=== PATIENT | male | born 1995 | race Caucasian/White ===

== ENCOUNTER → 2022-09-17 15:21 | Outpatient (BNVA) | payer MEDICARE, MEDICAID, SELFPAY | PROVIDERS: PCP Internal Medicine; Referring Provider Internal Medicine; Visit Provider Surgery | DX: L98.8 Other specified disorders of the skin and subcutaneous tissue (principal) | CPT/HCPCS: 99202 ==

== ENCOUNTER → 2022-10-10 15:49 | Outpatient (BNVA) | payer MEDICARE, MEDICAID, SELFPAY | PROVIDERS: PCP Internal Medicine; Visit Provider Surgery | DX: D17.1 Benign lipomatous neoplasm of skin and subcutaneous tissue of trunk (principal) | CPT/HCPCS: 11403; 88304 ==

== ENCOUNTER 2022-10-10 18:11 | Outpatient (REF) | payer MEDICARE, MEDICAID, SELFPAY | END 2022-10-10 18:12 | disposition home or self-care (01) | LOC: HO.LNP 18:11 | PROVIDERS: Visit Provider Surgery | DX: L98.8 Other specified disorders of the skin and subcutaneous tissue (principal) | CPT/HCPCS: 11043; 11403 ==

== ENCOUNTER → 2022-10-31 15:18 | Outpatient (BNVA) | payer MEDICARE, MEDICAID, SELFPAY | PROVIDERS: PCP Internal Medicine; Visit Provider Surgery | DX: Z13.89 Encounter for screening for other disorder (principal) ==

== ENCOUNTER 2023-11-06 15:33 | Outpatient (AMB) | payer OTHER, SELFPAY ==
[2023-11-06 15:35] VITALS: BP 124/86; PULSE 81; O2SAT 97; BMI 53.4
--- NOTE | 2023-11-06 15:35 | A.OFFPC_ITS ---
Vital Signs 11/06/23 15:35 Height 6 ft Weight 394 lb 2 oz BMI 53.4 BP 124/86 Blood Pressure Location Rt brachial Position Sitting Pulse 81 Pulse Source Pulse Oximeter Pulse Oximetry (%) 97 Oxygen Delivery Method Room Air Intake Visit Reasons: 6 Month follow up Allergies No Known Allergies [No Known Allergies*] Allergy (Verified 11/06/23 15:36) Environmental Allergy (Unknown, Uncoded 02/08/23 14:54) Unknown Medication List - Last Reconciled 11/06/23 by Selene Thomas MD No Known Home Meds Tobacco use date assessed: 11/06/23 Dental Screening Dental Screen Date: 11/06/23 Did you have a dental visit in the last 12 months?: Yes Did you have a dental problem in the last 6 months where you did not have access to dental care?: No Was dental information given to patient?: Patient has dentist HPI 6 Month follow up HPI Details Patient is 27-year-old gentleman came in today for six-month follow-up Patient is complaining of feeling firm around his abdomen He says that it has not pain but on uncomfortable feeling He is tolerating food there is no nausea vomiting However have diarrhea for the past 1 week There is no fever no chills no cough no headache no dizziness I am ordering ultrasound of abdomen to further evaluate I have placed a new set of lab orders patient was encouraged to do it as soon as possible He does not like needles we tells me but he will try to get it Patient is morbidly obese but trying to lose weight. Seborrheic dermatitis is controlled with shampoo. [id number] head and shoulder He has GERD he is taking omeprazole as needed Patient have a sleep apnea and is using a CPAP machine. Whenever he can Due for physical exam after [facility] Medical History Skin lesion of breast Morbid obesity Seborrhea capitis Sleep apnea in adult Chronic GERD Surgical History H/O tooth extraction Family History Father Klinefelter syndrome Depression History of mental disorder Mother Anxiety History of mental disorder Maternal Grandmother Arthritis Liver problem Cancer Maternal Grandfather Alcohol abuse Paternal Grandmother No problems noted. Paternal Grandfather No problems noted. Brother No problems noted. Sister No problems noted. Social History Housing: House Patient Tobacco Use Status: Never used Tobacco e-Cigarette/Vaping Use: Never Used Current occupational status: unemployed Cognitive needs: No Hearing needs: No Vision needs: No Questionnaire Thrive Questionnaire Date Thrive assessed: 08/08/22 AUDIT C Alcohol Use Questionnaire (AUDIT-C) 1. How often do you have a drink containing alcohol?: Never 3. How often do you have six or more drinks on one occasion?: Never Total Score: 0 Score Reviewed/Action Taken: Yes SARAH BETH-7 AMB Questionnaire SARAH BETH-7 Date SARAH BETH - 7 assessed: 08/08/22 Source: Developed by Drs. Milan Soria, Christy Lynn, Lawrence Cadena and colleagues, with an educational sagrario from [employer]. Review of Systems Const Denies chills and Denies fever(s) ENT Denies epistaxis and Denies nasal discharge Card Denies chest pain Resp Denies chest congestion, Denies cough and Denies hemoptysis GI Denies nausea Skin/Breast Denies rash Neuro Reports no additional complaints Psych Reports no additional complaints Endo Reports no additional complaints Physical exam (Primary Care) Vital Signs: Last Vital Signs Pulse 81 11/06/23 15:35 BP 124/86 11/06/23 15:35 Pulse Ox 97 11/06/23 15:35 Oxygen Delivery Method Room Air 11/06/23 15:35 BMI result Body Mass Index 53.4 Tobacco/Smoking Status: Tobacco use Status Tobacco use date assessed 11/06/23 11/06/23 15:42 Patient Tobacco Use Status Never used Tobacco 11/06/23 15:42 e-Cigarette/Vaping Use Never Used 11/06/23 15:42 Thrive Assessment: Date of Thrive Assessment Date Thrive assessed 08/08/22 11/06/23 15:42 Const General: cooperative, comfortable and no acute distress Orientation/consciousness: patient oriented x3 HENMT Head: Yes normocephalic Eyes General: appearance normal, both eyes and all related structures Neck Neck: Yes supple Resp Effort & Inspection: normal respiratory effort, no cough and no stridor GI Other: Due to patient's weight, exam is difficult but it seems as if he has developed ventral hernia Skin General skin exam: turgor normal Neuro General: patient oriented x3, tone normal and moves all extremities Assessment and Plan Assessment & Plan (1) Abdominal pain: Code(s): R10.9 - Unspecified abdominal pain Qualifiers: Abdominal location: periumbilical Qualified Code(s): R10.33 - Periumbilical pain (2) Morbid obesity: Code(s): E66.01 - Morbid (severe) obesity due to excess calories (3) Seborrhea capitis: Code(s): L21.0 - Seborrhea capitis (4) Chronic GERD: Code(s): K21.9 - Gastro-esophageal reflux disease without esophagitis (5) Sleep apnea in adult: Code(s): G47.30 - Sleep apnea, unspecified Plan Patient is 27-year-old gentleman came in today for six-month follow-up Patient is complaining of feeling firm around his abdomen He says that it has not pain but on uncomfortable feeling He is tolerating food there is no nausea vomiting However have diarrhea for the past 1 week There is no fever no chills no cough no headache no dizziness I am ordering ultrasound of abdomen to further evaluate I have placed a new set of lab orders patient was encouraged to do it as soon as possible He does not like needles we tells me but he will try to get it Patient is morbidly obese but trying to lose weight. Seborrheic dermatitis is controlled with shampoo. [id number] head and shoulder He has GERD he is taking omeprazole as needed Patient have a sleep apnea and is using a CPAP machine. Whenever he can Due for physical exam after me Orders: Orders US abdomen complete Today R10.9 - Unspecified abdominal pain Comprehensive Met. Panel Today E66.01 - Morbid (severe) obesity due to excess calories, G47.30 - Sleep apnea, unspecified, K21.9 - Gastro-esophageal reflux disease without esophagitis, L21.0 - Seborrhea capitis, R10.9 - Unspecified abdominal pain TSH reflex Free T4 Today E66.01 - Morbid (severe) obesity due to excess calories, G47.30 - Sleep apnea, unspecified, K21.9 - Gastro-esophageal reflux disease without esophagitis, L21.0 - Seborrhea capitis, R10.9 - Unspecified abdominal pain Complete Blood Count Auto Diff Today E66.01 - Morbid (severe) obesity due to excess calories, G47.30 - Sleep apnea, unspecified, K21.9 - Gastro-esophageal reflux disease without esophagitis, L21.0 - Seborrhea capitis, R10.9 - Unspecified abdominal pain Coding Level of Care Code Est Pt Level 4 (89380) Diagnoses Periumbilical abdominal pain R10.33 Abdominal location: periumbilical Morbid obesity E66.01 Seborrhea capitis L21.0 Chronic GERD K21.9 Sleep apnea in adult G47.30
== END 2023-11-06 16:18 | disposition home or self-care (01) ==
PROVIDERS: PCP Internal Medicine; Visit Provider Internal Medicine
DX: R10.33 Periumbilical pain (principal); E66.01 Morbid (severe) obesity due to excess calories; Z68.43 Body mass index [BMI] 50.0-59.9, adult; L21.0 Seborrhea capitis; K21.9 Gastro-esophageal reflux disease without esophagitis; G47.30 Sleep apnea, unspecified
CPT/HCPCS: 99214

== ENCOUNTER 2023-11-15 09:53 | Outpatient (REF) | payer OTHER, SELFPAY ==
--- NOTE | ~2023-11-15 | US_ITS ---
EXAMINATION: US ABDOMEN COMPLETE CLINICAL INFORMATION: Unspecified abdominal pain. COMPARISON: None available. TECHNIQUE: Real-time imaging of the abdominal viscera. Technically limited study secondary to body habitus. FINDINGS: PANCREAS: Not well seen due to shadowing from overlying bowel gas and patient body habitus. ABDOMINAL AORTA: Not well seen due to shadowing from overlying bowel gas and patient body habitus. INFERIOR VENA CAVA: Visualized portions are normal. LIVER: The liver is normal in size. The liver contour is normal. Increased echogenicity. No focal hepatic lesion. There is no intrahepatic biliary duct dilatation seen. GALLBLADDER: Normal. The gallbladder is physiologically distended without evidence of stones, sludge, polyps, wall thickening or pericholecystic fluid. COMMON BILE DUCT: Normal in caliber measuring 0.4 cm in diameter. RIGHT KIDNEY: Normal. No hydronephrosis. No renal calculi or focal parenchymal lesions. The kidney measures 10.5 cm in maximum dimension. LEFT KIDNEY: Normal. No hydronephrosis. No renal calculi or focal parenchymal lesions. The kidney measures 11.0 cm in maximum dimension. SPLEEN: Normal. The spleen measures 11.7 cm in maximum dimension. FREE FLUID: None. ADDITIONAL FINDINGS: Additional images of the right mid abdominal wall in the area of a lump/bulge demonstrating a hernia, incompletely characterized in this examination due to limitations secondary to patient body habitus. US/US abdomen complete IMPRESSION: 1. Limited examination due to patient body habitus and shadowing from overlying bowel gas. 2. Increased echogenicity of the liver is a nonspecific finding but most commonly on the basis of diffuse hepatocellular disease such as hepatic steatosis. 3. Incompletely characterized hernia in the right abdominal wall, recommend further evaluation with CT abdomen/pelvis.
[2023-11-15 13:22] LABS: MANUAL DIFF FLAG NO
[2023-11-15 13:30] LABS: Basophils Percent Auto 0.3 % (0-2); Eosinophils Absolute Auto 0.2 X10*3/uL (0.0-0.4); Eosinophils Percent Auto 2.3 % (0-4); Hemoglobin 14.8 g/dl (14.0-18.0); Imm Gran Abs Auto 0.01 X10*3/uL (0.00-0.03); Imm Gran Pct Auto 0.1 % (0.0-0.4); Lymphocytes Absolute Auto 2.4 X10*3/uL (1.2-4.9); Lymphocytes Percent Auto 35.4 % (20-40); Mean Corpuscular HGB Conc 32.2 g/dl (31.0-36.0); Mean Platelet Volume 10.4 fL (9.4-12.4); Monocytes Absolute Auto 0.4 X10*3/uL (0.1-1.2); Monocytes Percent Auto 6.1 % (2-11); Neutrophils Absolute Auto 3.8 x10*3/uL (2.0-8.3); Neutrophils Percent Auto 55.8 % (45-73); Platelet Count 223 X10*3/uL (160-400); Red Blood Count 5.29 X10*6/uL (4.60-5.80); Red Cell Distribution Width 13.4 % (11.0-16.0); White Blood Count 6.9 X10*3/uL (4.8-10.8)
[2023-11-15 14:19] LABS: Alanine Aminotransferase 21 U/L (0-40); Albumin Level 3.9 g/dL (3.5-5.0); Alkaline Phosphatase 93 U/L (39-117); Anion Gap 13 (12-20); Aspartate Amino Transferase 17 U/L (5-37); Bilirubin Total 0.4 mg/dL (0.0-1.0); Blood Urea Nitrogen 14 mg/dL (9-16); Calcium 9.6 mg/dL (8.4-10.2); Carbon Dioxide 25 mmol/L (22-29); Chloride 106 mmol/L (96-108); Estimated Glomerular Filt Rate > 60; Glucose Random 94 mg/dL (60-115); Potassium 4.2 mmol/L (3.3-5.1); Sodium 140 mmol/L (135-145); Total Protein 7.6 g/dL (6.5-8.0)
== END 2023-11-15 09:54 | disposition home or self-care (01) ==
LOC: HO.HMGCX 09:53
PROVIDERS: PCP Internal Medicine; Visit Provider Internal Medicine
DX: E66.01 Morbid (severe) obesity due to excess calories (principal); R10.9 Unspecified abdominal pain; L21.0 Seborrhea capitis; G47.30 Sleep apnea, unspecified; K21.9 Gastro-esophageal reflux disease without esophagitis
CPT/HCPCS: 36415; 76700; 80053; 84443; 85025

== ENCOUNTER 2023-11-21 08:50 | Outpatient (AMB) | payer OTHER, SELFPAY ==
--- NOTE | 2023-11-21 09:24 | A.OFFPC_ITS ---
Intake Visit Reasons: Discuss Ultrasound Report~ Allergies No Known Allergies [No Known Allergies*] Allergy (Verified 11/21/23 09:25) Environmental Allergy (Unknown, Uncoded 02/08/23 14:54) Unknown Medication List - Last Reconciled 11/21/23 by Selene Thomas MD No Known Home Meds Tobacco use date assessed: 11/21/23 Dental Screening Dental Screen Date: 11/21/23 Did you have a dental visit in the last 12 months?: No Did you have a dental problem in the last 6 months where you did not have access to dental care?: No Was dental information given to patient?: Patient has dentist HPI Discuss Ultrasound Report~ HPI Details Patient is 27-year-old gentleman this is a telemedicine video conference Patient have a bulge on his abdominal wall slightly right to umbilicus Ultrasound abdomen showed abdominal wall hernia Patient would like to have a consultation with the surgeon, referral placed I have also ordered CT scan to have more information as per radiology recommendation We will see if we can book patient with open CT scan due to his weight. Ultrasound also shows hepatic steatosis, discussed with the patient. [facility] Medical History Skin lesion of breast Morbid obesity Seborrhea capitis Sleep apnea in adult Chronic GERD Surgical History H/O tooth extraction Family History Father Klinefelter syndrome Depression History of mental disorder Mother Anxiety History of mental disorder Maternal Grandmother Arthritis Liver problem Cancer Maternal Grandfather Alcohol abuse Paternal Grandmother No problems noted. Paternal Grandfather No problems noted. Brother No problems noted. Sister No problems noted. Social History Housing: House Patient Tobacco Use Status: Never used Tobacco e-Cigarette/Vaping Use: Never Used Current occupational status: unemployed Cognitive needs: No Hearing needs: No Vision needs: No Questionnaire Thrive Questionnaire Date Thrive assessed: 08/08/22 SARAH BETH-7 AMB Questionnaire SARAH BETH-7 Date SARAH BETH - 7 assessed: 08/08/22 Source: Developed by Drs. Milan Soria, Christy Lynn, Lawrence Cadena and colleagues, with an educational sagrario from [employer]. Review of Systems Const Denies chills and Denies fever(s) ENT Denies epistaxis and Denies nasal discharge Card Denies chest pain Resp Denies chest congestion, Denies cough and Denies hemoptysis GI Denies diarrhea and Denies nausea Skin/Breast Denies rash Neuro Reports no additional complaints Psych Reports no additional complaints Endo Reports no additional complaints Physical exam (Primary Care) Tobacco/Smoking Status: Tobacco use Status Tobacco use date assessed 11/21/23 11/21/23 09:25 Patient Tobacco Use Status Never used Tobacco 11/21/23 09:25 e-Cigarette/Vaping Use Never Used 11/21/23 09:25 Thrive Assessment: Date of Thrive Assessment Date Thrive assessed 08/08/22 11/21/23 09:25 Telehealth Telehealth Location of provider rendering services: practice address Location of patient: address on file Patient Identification confirmed using: Name, : Yes Telehealth method: video Patient verbally consented to treatment: Yes Patient verbally consented to billing insurance company: Yes Patient informed of any privacy concerns related to visit: Yes Assessment and Plan Assessment & Plan (1) Abdominal wall hernia: Code(s): K43.9 - Ventral hernia without obstruction or gangrene (2) Hepatic steatosis: Code(s): K76.0 - Fatty (change of) liver, not elsewhere classified (3) Morbid obesity: Code(s): E66.01 - Morbid (severe) obesity due to excess calories Plan Patient is 27-year-old gentleman this is a telemedicine video conference Patient have a bulge on his abdominal wall slightly right to umbilicus Ultrasound abdomen showed abdominal wall hernia Patient would like to have a consultation with the surgeon, referral placed I have also ordered CT scan to have more information as per radiology recommendation We will see if we can book patient with open CT scan due to his weight. Ultrasound also shows hepatic steatosis, discussed with the patient. Orders: Orders CT abdomen wo IV con Today K43.9 - Ventral hernia without obstruction or gangr jeferson Referrals General Surgery Referral K43.9 - Ventral hernia without obstruction or gangrene Coding Level of Care Code Tele Est Pt Level 3 (67249) Diagnoses Abdominal wall hernia K43.9 Hepatic steatosis K76.0 Morbid obesity E66.01 Time Spent (min) 16
== END 2023-11-21 11:45 | disposition home or self-care (01) ==
LOC: HO.HMGC 08:50
PROVIDERS: PCP Internal Medicine; Visit Provider Internal Medicine
DX: K43.9 Ventral hernia without obstruction or gangrene (principal); K76.0 Fatty (change of) liver, not elsewhere classified; E66.01 Morbid (severe) obesity due to excess calories
CPT/HCPCS: 99213

== ENCOUNTER 2023-12-04 14:48 | Outpatient (AMB) | payer OTHER, SELFPAY ==
--- NOTE | 2023-12-04 14:49 | MHC.OFFVIS ---
Intake Vital Signs 12/04/23 14:54 Height 5 ft 10 in Weight 400 lb BMI 57.4 BP 152/94 H Blood Pressure Location Rt radial Position Sitting Pulse 98 Intake Visit Reasons: Ventral hernia Intake Note: Patient referred by Dr. Thomas for ventral hernia. Patient c/o: pain, tender with touch. Furniture Servicer Required: No Accompanied by: Mother Allergies No Known Allergies [No Known Allergies*] Allergy (Verified 12/04/23 14:55) Environmental Allergy (Unknown, Uncoded 12/04/23 14:55) Unknown HPI HPI Comments History of Present Illness Details Patient presents with his mother for a several year history of a periumbilical/massive ventral hernia . As noted, he has had this several years time it is quite a large size and he wishes to have this addressed. He has no other GI issues or complaints. He has tolerating a diet having regular bowel habits. Chart was reviewed patient evaluated. Aside from sleep apnea and patient has morbid obesity, he has no other significant cold morbidities. [facility] Medical History Skin lesion of breast Morbid obesity Seborrhea capitis Sleep apnea in adult Chronic GERD Surgical History H/O tooth extraction Family History Father Klinefelter syndrome Depression History of mental disorder Mother Anxiety History of mental disorder Maternal Grandmother Arthritis Liver problem Cancer Maternal Grandfather Alcohol abuse Paternal Grandmother No problems noted. Paternal Grandfather No problems noted. Brother No problems noted. Sister No problems noted. Social History Housing: House Patient Tobacco Use Status: Never used Tobacco e-Cigarette/Vaping Use: Never Used Current occupational status: unemployed Cognitive needs: No Hearing needs: No Vision needs: No Physical Exam Vital Signs: Last Vital Signs Pulse 98 12/04/23 14:54 BP 152/94 H 12/04/23 14:54 BMI result Body Mass Index 57.4 Const Other: Profoundly corpulent patient. Chest Other: Chest breath sounds bilaterally, HS 1 in 2 GI Other: Patient has an enormous abdomen with approximately 12-15 cm supraumbilical ventral incarcerated hernia most probably with omental contents. Assessment & Plan Assessment & Plan (1) Abdominal wall hernia: Code(s): K43.9 - Ventral hernia without obstruction or gangrene (2) Morbid obesity: Code(s): E66.01 - Morbid (severe) obesity due to excess calories (3) Sleep apnea in adult: Code(s): G47.30 - Sleep apnea, unspecified Plan Extensive discussion was had with patient and his mother regarding the risks, benefits, alternatives of open incarcerated massive ventral hernia repair most probably with mesh which included but not limited to bleeding, infection, recurrence, numbness, pain, scarring and the patient wishes to proceed. He has a vacation planned in the near future and wishes to have this repaired after that. Arrangements were made for this. All questions answered. Coding Level of Care Code New Pt Level 5 (72460) Diagnoses Abdominal wall hernia K43.9 Morbid obesity E66.01 Sleep apnea in adult G47.30
[2023-12-04 14:54] VITALS: BP 152/94; PULSE 98; BMI 57.4
== END 2023-12-04 15:05 | disposition home or self-care (01) ==
PROVIDERS: PCP Internal Medicine; Referring Provider Internal Medicine; Visit Provider Surgery
DX: K43.9 Ventral hernia without obstruction or gangrene (principal); E66.01 Morbid (severe) obesity due to excess calories; G47.30 Sleep apnea, unspecified
CPT/HCPCS: 99204

== ENCOUNTER → 2023-12-04 14:48 | Outpatient (BNVA) | payer OTHER, SELFPAY | PROVIDERS: PCP Internal Medicine; Referring Provider Internal Medicine; Visit Provider Surgery | DX: K43.9 Ventral hernia without obstruction or gangrene (principal); G47.30 Sleep apnea, unspecified; E66.01 Morbid (severe) obesity due to excess calories; Z68.43 Body mass index [BMI] 50.0-59.9, adult | CPT/HCPCS: 99202 ==

== ENCOUNTER → 2024-02-11 10:49 | Outpatient (BNV) | payer OTHER, SELFPAY | PROVIDERS: Admitting Provider Surgery; PCP Internal Medicine; Visit Provider Internal Medicine Cardiovascular Disease | DX: I49.9 Cardiac arrhythmia, unspecified (principal) | CPT/HCPCS: 93010 ==

== ENCOUNTER 2024-02-13 11:05 | Day surgery (SDC) | payer OTHER, SELFPAY ==
[2024-02-10 13:30] VITALS: BMI 57.7
--- NOTE | 2024-02-11 | ECG_ITS ---
Test Reason : PREOP Blood Pressure : / mmHG Vent. Rate : 078 BPM Atrial Rate : 078 BPM P-R Int : 188 ms QRS Dur : 090 ms QT Int : 364 ms P-R-T Axes : 057 057 041 degrees QTc Int : 414 ms Normal sinus rhythm with sinus arrhythmia Normal ECG No previous ECGs available Referred By: Melody Corley Electronically Signed By:Ron Llamas
[2024-02-11 10:18] VITALS: BMI 58.1
[2024-02-11 10:25] VITALS: BP 121/69; PULSE 84; RESP 16; O2SAT 95
--- NOTE | 2024-02-12 15:16 | MHC.SHP ---
Pre-Procedural Eval Section A - 24 Hr Update-Section A only Date of Service: 02/12/24 The patient is an INPATIENT: No Changes since office visit: No Cold of Flu in the past 2 weeks, No New Medical Problems, No Changes in Medication and No Patient answered all questions Section B - Complete if H&P > 30 days Chief Complaint: Ventral hernia without obstruction or gangrene Allergies: Allergies Allergy/AdvReac Type Severity Reaction Status Date / Time No Known Allergies Allergy Verified 02/03/24 11:04 [No Known Allergies*] Environmental Allergy Unknown Unknown Uncoded 12/04/23 14:55 Plan I have reviewed the history and physical and performed a pertinent physical examination on my patient. No changes have occurred unless specified. Time Spent With Patient Time: Total time managing care of this patient today ____ minutes.
[2024-02-13] VITALS (14 sets, daily range): BP systolic 115–163; BP diastolic 68–91; PULSE 68–88; RESP 14–18; TEMP 36–36.6; O2SAT 92–99; BMI 59.0
[2024-02-13] MEDS: Lactated Ringers 1,000 ML 100 ML IVCONT ×3 (07:43→23:12)
--- NOTE | 2024-02-13 08:26 | MHC.SHP ---
Pre-Procedural Eval Section A - 24 Hr Update-Section A only Date of Service: 02/13/24 The patient is an INPATIENT: No Changes since office visit: No Cold of Flu in the past 2 weeks, No New Medical Problems, No Changes in Medication and No Patient answered all questions Section B - Complete if H&P > 30 days Chief Complaint: Ventral hernia without obstruction or gangrene Details of Present Illness: Umbilical hernia repair with mesh Allergies: Allergies Allergy/AdvReac Type Severity Reaction Status Date / Time No Known Allergies Allergy Verified 02/13/24 07:51 [No Known Allergies*] Environmental Allergy Unknown Unknown Uncoded 12/04/23 14:55 Plan I have reviewed the history and physical and performed a pertinent physical examination on my patient. No changes have occurred unless specified. Time Spent With Patient Time: Total time managing care of this patient today ____ minutes.
--- NOTE | 2024-02-13 08:30 | P.CONAN_ITS ---
Documented by User: Melody Corley NP 02/11/24 11:48 HPI - Anesthesia Eval Consult details Narrative: 28yo M for Open Repair Massive Incarcerated Hernia Ventral Irreducible with Mesh No recent illness No CP/SOB with minimal activity SAM: No CPAP GERD: ppi daily controlls PMFSH Active Problems Active Problems: All Active Problems Hepatic steatosis (Acute) Abdominal wall hernia (Acute) Abdominal pain (Acute) Encounter for general adult medical examination with abnormal findings (Acute) Anxiety, generalized (Acute) Major depression (Acute) Skin growth (Acute) Skin lesion of breast (Acute) Morbid obesity (Acute) Seborrhea capitis (Acute) Sleep apnea in adult (Acute) Chronic GERD (Acute) Past Medical History Medical History (Updated 02/13/24 @ 07:44 by Nicolle Correa RN) Seasonal allergies Environmental allergies Depression Anxiety Skin lesion of breast Morbid obesity Seborrhea capitis Sleep apnea in adult Chronic GERD Family History Family History Father Klinefelter syndrome Depression History of mental disorder Mother Anxiety History of mental disorder Maternal Grandmother Arthritis Liver problem Cancer Maternal Grandfather Alcohol abuse Paternal Grandmother No problems noted. Paternal Grandfather No problems noted. Brother No problems noted. Sister No problems noted. Family history of problems with anesthesia: No Surgical History Surgical History History of surgical removal of ganglion cyst H/O tooth extraction History of Problems with Anesthesia: No Social History Social History (Updated 02/03/24 @ 11:05 by Ashley Feliciano RN) Household Members: Family Housing: House Are you a primary animal care provider to a significant other at home: No Do you presently have visiting nurse or other home services: No Patient Tobacco Use Status: Never used Tobacco e-Cigarette/Vaping Use: Never Used Use of substances other than those prescribed or required for medical reasons: Yes Substance Use Type: Marijuana Substance Use Frequency: Occasionally Have you been hit, kicked, punched, or otherwise hurt by someone within the past year? If so, by whom?: No Are you DNR?: No Advance Directives: No Advance Directives Information Provided: Yes Advance Directives on File: No Healthcare Proxy: No Recently lost weight without trying: No Poor oral hygiene: No Current occupational status: unemployed Cognitive needs: No Hearing needs: No Vision needs: No Meds Allergies Allergy/AdvReac Type Severity Reaction Status Date / Time No Known Allergies Allergy Verified 02/13/24 07:51 [No Known Allergies*] Environmental Allergy Unknown Unknown Uncoded 12/04/23 14:55 Home Medications ?Medication ?Instructions ?Recorded ?Confirmed ?Last Taken ?Type omeprazole 20 mg capsule,delayed 20 mg PO DAILY 02/10/24 02/10/24 02/13/24 05:00 History release Exam Height,Weight and Vital Signs: Height 5 ft 10 in Weight 183.705 kg Last Vital Signs Pulse 84 02/11/24 10:25 Resp 16 02/11/24 10:25 BP 121/69 02/11/24 10:25 Pulse Ox 95 02/11/24 10:25 O2 Del Method Room Air 02/11/24 10:25 Pertinent Lab Results Pertinent Lab Results: Laboratory Tests 11/15/23 10:27 WBC 6.9 Hgb 14.8 Hct 46.0 Plt Count 223 Sodium 140 Potassium 4.2 Chloride 106 Carbon Dioxide 25 BUN 14 Creatinine 0.88 Narrative Narrative: EKG 02/2024 Vent. Rate : 078 BPM Atrial Rate : 078 BPM P-R Int : 188 ms QRS Dur : 090 ms QT Int : 364 ms P-R-T Axes : 057 057 041 degrees QTc Int : 414 ms Normal sinus rhythm with sinus arrhythmia Normal ECG No previous ECGs available Airway Mallampati Class: II TM Dist: <=3cm Neck ROM: Full Loose/Missing/Broken Teeth: No (Braces brackets on front teeth) Heart: RRR Lungs: CTAB Assessment and Plan Assessment Anesthesia Assessment: Anesthesia Plan Discussed and PAT Visit Final Anesthetic Review Family History of Problems with Anesthesia: No History of Problems with Anesthesia: No Documented by User: Nicolle Bateman DO 02/13/24 09:21 [facility] Past Medical History Medical History (Updated 02/13/24 @ 07:44 by Nicolle Correa RN) Seasonal allergies Environmental allergies Depression Anxiety Skin lesion of breast Morbid obesity Seborrhea capitis Sleep apnea in adult Chronic GERD Family History Family History Father Klinefelter syndrome Depression History of mental disorder Mother Anxiety History of mental disorder Maternal Grandmother Arthritis Liver problem Cancer Maternal Grandfather Alcohol abuse Paternal Grandmother No problems noted. Paternal Grandfather No problems noted. Brother No problems noted. Sister No problems noted. Family history of problems with anesthesia: No Surgical History Surgical History History of surgical removal of ganglion cyst H/O tooth extraction History of Problems with Anesthesia: No Social History Social History (Updated 02/03/24 @ 11:05 by Ashley Feliciano RN) Household Members: Family Housing: House Are you a primary animal care provider to a significant other at home: No Do you presently have visiting nurse or other home services: No Patient Tobacco Use Status: Never used Tobacco e-Cigarette/Vaping Use: Never Used Use of substances other than those prescribed or required for medical reasons: Yes Substance Use Type: Marijuana Substance Use Frequency: Occasionally Have you been hit, kicked, punched, or otherwise hurt by someone within the past year? If so, by whom?: No Are you DNR?: No Advance Directives: No Advance Directives Information Provided: Yes Advance Directives on File: No Healthcare Proxy: No Recently lost weight without trying: No Poor oral hygiene: No Current occupational status: unemployed Cognitive needs: No Hearing needs: No Vision needs: No Meds Allergies Allergy/AdvReac Type Severity Reaction Status Date / Time No Known Allergies Allergy Verified 02/13/24 07:51 [No Known Allergies*] Environmental Allergy Unknown Unknown Uncoded 12/04/23 14:55 Home Medications ?Medication ?Instructions ?Recorded ?Confirmed ?Last Taken ?Type omeprazole 20 mg capsule,delayed 20 mg PO DAILY 02/10/24 02/10/24 02/13/24 05:00 History release Exam Exam Date and Time: February 13, 2024 0800 Height,Weight and Vital Signs: Height 5 ft 10 in Weight 183.705 kg Last Vital Signs Pulse 84 02/11/24 10:25 Resp 16 02/11/24 10:25 BP 121/69 02/11/24 10:25 Pulse Ox 95 02/11/24 10:25 O2 Del Method Room Air 02/11/24 10:25 Height 5 ft 10 in Weight 186.426 kg Vital Signs Pulse Rate 84 02/11/24 10:25 Respiratory Rate 16 02/11/24 10:25 Blood Pressure 121/69 02/11/24 10:25 Pulse Oximetry 95 02/11/24 10:25 Oxygen Delivery Method Room Air 02/11/24 10:25 Temperature 97.2 F 02/13/24 07:28 Pulse Rate 82 02/13/24 07:28 Respiratory Rate 16 02/13/24 07:28 Blood Pressure 115/74 02/13/24 07:28 Pulse Oximetry 95 02/13/24 07:28 Oxygen Delivery Method Room Air 02/13/24 07:28 Airway Mallampati Class: II TM Dist: <=3cm Neck ROM: Full Loose/Missing/Broken Teeth: No (Braces brackets on front teeth) Heart: S1S2 Assessment and Plan Assessment Anesthesia Assessment: Anesthesia Plan Discussed and Chart Reviewed Final Anesthetic Review Family History of Problems with Anesthesia: No History of Problems with Anesthesia: No NPO: Yes ASA Class: III Final Preanesthetic Review: No Changes in Pt Med Stat, Meds/Allgs Chart Reviewed, Consent Obtained/Reviewed and Anes Risks/Benef Reviewed Patient Risk: Intermediate Procedure Risk: Low Anesthetic Plan Anesthetic Plan: GA and Agree w/ Assess. and Plan Disposition: Standard PACU
--- NOTE | 2024-02-13 08:43 | MHC.SHP ---
Pre-Procedural Eval Section A - 24 Hr Update-Section A only Date of Service: 02/13/24 The patient is an INPATIENT: No Changes since office visit: No Cold of Flu in the past 2 weeks, No New Medical Problems, No Changes in Medication and No Patient answered all questions The patient has been examined within 24 hours of the surgical procedure. The History & Physical has been completed within 30 days and I have reviewed it.: Yes Section B - Complete if H&P > 30 days Chief Complaint: Ventral hernia without obstruction or gangrene Allergies: Allergies Allergy/AdvReac Type Severity Reaction Status Date / Time No Known Allergies Allergy Verified 02/13/24 07:51 [No Known Allergies*] Environmental Allergy Unknown Unknown Uncoded 12/04/23 14:55 Review of Systems Sugical H&P ROS: Negative: Constitution, Cardiovascular, Respiratory, Neurological, Psychiatric, Hem-Onc, Allergic/Immunologic, Gastrointestinal, Genitourinary, Musculoskeletal, Integumentary, Endocrine and Eyes/Ears/Nose/Throat Exam Surgical H&P Exam: Normal: HEENT, Normal: Heart, Normal: Lungs, Normal: Extremities, Normal: Abdomen (Very corpulent abdomen), Normal: Skin and Normal: Neurological Plan Diagnosis/Plan: Unchanged I have reviewed the history and physical and performed a pertinent physical examination on my patient. No changes have occurred unless specified. Time Spent With Patient Time: Total time managing care of this patient today ____ minutes.
--- NOTE | 2024-02-13 10:55 | P.OP_ITS ---
Operative Note Operative Note Date of Service: 02/13/24 Narrative: Preoperative diagnosis: . Massive Incarcerated umbilical hernia Postop diagnosis: [] 1. Large incarcerated supraumbilical hernia 2. Massive incarcerated umbilical hernia Procedure [] 1. Repair incarcerated umbilical hernia with Bard mesh 2. Repair incarcerated supra umbilical hernia Surgeon: [] Melvin Print Production Coordinator: [] Raul Type of Anesthesia: [] General Indication for surgery: [] Ptblack is a massively morbidly obese male who presented with a very large incarcerated umbilical hernia fascia defect measuring approximately 6 cm. Exam is obviously difficult secondary to the patient's extremely corpulent abdomen. Upon completion of the original surgery, patient was being extubated and a 2nd hernia in the upper midline was demonstrated and was subsequently repaired. The fascia defect of the 2nd hernia measured approximately 5 cm. Findings: [] Patient brought to the operating room, placed on operative table in supine position, after an adequate level general anesthesia was induced, the patient's abdomen was prepped and draped in usual sterile fashion. Using an umbilical curvilinear incision over the enormous hernia sac , this carried down through skin, subcutaneous tissue, where circumferentially dissection down the fascia of the hernia sac was accomplished. Sac was opened were incarcerated omentum was partially amputated using clamps, cutting, and time using 2-0 Vicryl ties and remaining omentum reduced. Fascia margins were circumferentially cleared. And appropriate sized Bard mesh was placed in this defect and the superficial layer of the mesh was circumferentially sutured to the surrounding fascia using interrupted 0 Ethibond suture. At completion of the procedure, mesh was in good position with no tension or gaps. Wound was irrigated, secured hemostasis, and closed in the following manner; subcutaneous tissue was reapproximated using interrupted 3-0 Vicryl suture. Skin was closed using interrupted inverted dermal 3-0 Vicryl sutures followed by Steri-Strips and sterile dressings. Wound was infiltrated 0.5% Marcaine at completion. As noted above, as the patient was coming out of anesthesia, a 2nd hernia several cm above the original was identified. The abdomen was once again prepped and draped in usual sterile fashion using a transverse incision over this hernia, this carried down through skin, subcutaneous tissue, where the large hernia sac was circumferentially dissected down to fascia and opened. This contained omentum and transverse colon. Redundant sac was amputated using Bovie. Hernia contents were then reduced. Fascia margins were circumferentially cleared. Appropriate sized Bard mesh was placed in this defect, and the superficial layer of the mesh was circumferentially sutured to the surrounding fascia using interrupted 0 Ethibond suture. At completion of the repair, mesh was in good position with no evidence of tension or gallops. Wound was irrigated, secured hemostasis, and closed in the following manner; subcutaneous tissue was reapproximated using interrupted 3-0 Vicryl sutures. Skin was closed using interrupted inverted dermal 3-0 Vicryl sutures followed by Steri-Strips and sterile dressings. Wound was infiltrated 0.5% Marcaine at completion. Sponge, needle, and instrument counts were reported correct. Patient tolerated the procedure well and emerged from anesthesia stable condition. Abdominal binder was placed EBL minimal
[2024-02-13] MEDS: Ketorolac Tromethamine 30 MG/ML VIAL IVPUSH (11:20)
[2024-02-13] MEDS: oxyCODONE HCl Immed Release 5 MG TABLET PO (12:20)
[2024-02-13] MEDS: Acetaminophen 1,000 MG/100 ML PIGGYBACK 400 MG IV ×2 (15:31→20:37)
[2024-02-14 03:08] VITALS: BP 127/75; PULSE 73; RESP 16; TEMP 36.5; O2SAT 93
[2024-02-14] MEDS: Acetaminophen 1,000 MG/100 ML PIGGYBACK 400 MG IV (03:10)
[2024-02-14] MEDS: oxyCODONE HCl Immed Release 5 MG TABLET PO ×2 (04:00→09:13)
[2024-02-14 07:16] VITALS: BP 122/66; PULSE 71; RESP 18; TEMP 36.4; O2SAT 92
--- NOTE | 2024-02-14 09:21 | PM.PNGS ---
Subjective Subjective Date of Service: 02/14/24 Interval history: Sore this morning but comfortable with analgesics. Tolerating solid diet. OOB to bathroom. Would like to go home. Physical Exam Vital Signs: Vital Signs: Last Vital Signs Temp 97.5 F 02/14/24 07:16 Pulse 71 02/14/24 07:16 Resp 18 02/14/24 07:16 BP 122/66 02/14/24 07:16 Pulse Ox 92 02/14/24 07:16 O2 Del Method Room Air 02/14/24 07:16 O2 Flow Rate 3 02/13/24 11:43 BMI result Body Mass Index 59.0 Const: General: comfortable, no acute distress and alert Orientation/consciousness: patient oriented x3 Resp: Effort & Inspection: normal respiratory effort GI: Inspection: No distended and Yes incision (dressings c/d/i) Palpation (GI): Soft to palpation and Tenderness to palpation present (GI) (incisional) Skin: General skin exam: no rashes or lesions noted Neuro: General: patient oriented x3 and moves all extremities Objective Data Active Medications Acetaminophen (Acetaminophen 325 Mg Tablet) 650 mg PO Q6H PRN PRN Reason: Pain, Mild (Pain Scale 1-3) Al Hydroxide/Mg Hydroxide (Magnesium Hydrox/Alum Hydrox 30 Ml Oral.Susp) 30 ml PO Q4H PRN PRN Reason: Heartburn/Nausea Docusate Sodium (Docusate Sodium 100 Mg Capsule) 100 mg PO BID PRN PRN Reason: Constipation Hydromorphone HCl (Hydromorphone Hcl 1 Mg/Ml Syringe) 0.5 mg IVPUSH Q4H PRN; Protocol PRN Reason: Pain, Severe (Pain Scale 7-10) Lactated Ringer's (Lr) 1,000 mls @ 100 mls/hr IVCONT .Q10H ISABEL Last Infusion: 02/14/24 09:07 Dose: Infused Documented By: JESSE Ketorolac Tromethamine (Ketorolac Tromethamine 30 Mg/Ml Vial) 30 mg IVPUSH Q6H PRN PRN Reason: Pain, Mild (Pain Scale 1-3) Stop: 02/18/24 11:12 Last Admin: 02/13/24 11:20 Dose: 30 mg Documented By: ORLANDO Magnesium Hydroxide (Milk Of Magnesia 30 Ml Oral.Susp) 30 ml PO DAILY PRN PRN Reason: Constipation Ondansetron HCl (Ondansetron Hcl 4 Mg/2 Ml Vial) 4 mg IVPUSH Q4H PRN PRN Reason: Nausea and Vomiting Oxycodone HCl (Oxycodone Hcl Immed Release 5 Mg Tablet) 5 mg PO Q4H PRN PRN Reason: Pain, Moderate(Pain Scale 4-6) Last Admin: 02/14/24 09:13 Dose: 5 mg Documented By: JESSE Sodium Chloride (0.9 % Sodium Chloride Flush 3 Ml Syringe) 3 ml IVFLUSH [facility] Last Admin: 02/14/24 09:07 Dose: Not Given Documented By: JESSE Non-Admin Reason: IV Running Sodium Chloride (0.9 % Sodium Chloride Flush 3 Ml Syringe) 3 ml IVFLUSH [facility] Last Admin: 02/14/24 09:07 Dose: Not Given Documented By: JESSE Non-Admin Reason: IV Running Temazepam (Temazepam 15 Mg Capsule) 15 mg PO BEDTIME PRN PRN Reason: Insomnia Procedures Date of Service Date of Service: 02/14/24 Progress Note: A&P Assessment and plan (1) Abdominal wall hernia: Status: Acute Plan POD #1 s/p Repair incarcerated umbilical hernia with Bard mesh and Repair incarcerated supra umbilical hernia. Doing well post op, pain controlled. Abdomen benign with appropriate post op tenderness, dressings c/d/i. Stable for dc to home today. F/u in office in 1 week. Cont abd binder daily, educated no strenuous activities. Patient comfortable with plan. Time Spent With Patient Time: Total time managing care of this patient today ____ minutes. Quality Stroke Does the patient have a stroke diagnosis?: No VTE Prior VTE?: No VTE Risk Level:: Surgical - low VTE Device Contraindication: N/A - Device Ordered VTE Drug Contraindication: Treatment Not Indicated
--- NOTE | 2024-02-14 09:26 | MHC.CM.PN ---
IMM 02/14/24, EMR REVIEWED, PT S/P UMBILICAL HERNIA REPAIR W/MESH, CM MET W/PT WHO REPORTS HE LIVES W/HIS MOM, PT INDEP W/CARE AND DENIES USE OF DE/SERVICES, PT'S GOAL FOR DC IS HOME NO SERVICES. PT VERIFIES PCP ON FILE IS CORRECT AND PT EDUCATED ON AND DECLINES TO COMPLETE AN HCP AT THIS TIME, PT AWARE IF HE CHANGES HIS MIND HE CAN ASK FOR CM.
--- NOTE | 2024-02-14 09:48 | MHC.CM.PN ---
PT MEDICALLY CLEARED FOR DC HOME NO SERVICES ORDERED, PT TO ARRANGE TRANSPORT
[2024-02-14] MEDS: HYDROmorphone HCl 1 MG/ML SYRINGE 0.5 MG IVPUSH (12:50)
--- NOTE | 2024-02-14 14:21 | HO.POSTANES ---
Post Anesthesia Evaluation Post Anesthesia Evaluation Date of Service: 02/13/24 Vital Signs: Vital Signs Temp Pulse Resp BP Pulse Ox O2 Del Method 02/14/24 07:16 97.5 F 71 18 122/66 92 Room Air 02/14/24 03:08 97.7 F 73 16 127/75 93 Room Air Mental Status: Awake Pain Control: Satisfactory Nausea/Vomiting: None Hydration: Adequate Anesthesia-Related Issues: No Anes. Related Issues
== END 2024-02-14 14:30 | disposition home or self-care (01) ==
LOC: HO.SSS 11:21 → HO.S3 14:13
PROVIDERS: PCP Internal Medicine; Visit Provider Surgery
PROC: (CPT 49594; principal; 2024-02-13 08:30)
DX: K42.0 Umbilical hernia with obstruction, without gangrene (principal); K43.6 Other and unspecified ventral hernia with obstruction, without gangrene; E66.01 Morbid (severe) obesity due to excess calories; Z68.43 Body mass index [BMI] 50.0-59.9, adult; K21.9 Gastro-esophageal reflux disease without esophagitis; G47.33 Obstructive sleep apnea (adult) (pediatric); Z99.89 Dependence on other enabling machines and devices; Z56.0 Unemployment, unspecified
CPT/HCPCS: 49594 ×2; 88302; 93005; C1781; J0131; J0690; J1170; J1885; J2250; J2405; J2704; J2765; J2795; J3010; J7120

== ENCOUNTER → 2024-02-13 11:05 | Outpatient (BNV) | payer OTHER, SELFPAY | PROVIDERS: PCP Internal Medicine; Visit Provider Surgery | DX: K43.6 Other and unspecified ventral hernia with obstruction, without gangrene (principal) | CPT/HCPCS: 49596; 99024; 99213 ==

== ENCOUNTER 2024-02-19 15:25 | Outpatient (AMB) | payer OTHER, SELFPAY ==
[2024-02-19 15:27] VITALS: BP 126/74; PULSE 92; O2SAT 97; BMI 60.8
--- NOTE | 2024-02-19 15:27 | MHC.PC.OV ---
Vital Signs 02/19/24 15:27 Height 5 ft 10 in Weight 423 lb 8 oz BMI 60.8 BP 126/74 Blood Pressure Location Rt radial Position Sitting Pulse 92 Pulse Source Pulse Oximeter Pulse Oximetry (%) 97 Oxygen Delivery Method Room Air Intake Visit Reasons: Annual PE Allergies No Known Allergies [No Known Allergies*] Allergy (Verified 02/19/24 15:28) Environmental Allergy (Unknown, Uncoded 12/04/23 14:55) Unknown Medication List - Last Reconciled 02/19/24 by Selene Thomas MD docusate sodium (Colace) 100 mg PO BID PRN hydrocodone-acetaminophen 5-325 mg 1 tab PO Q4-6H PRN omeprazole 20 mg PO DAILY Tobacco use date assessed: 02/19/24 Dental Screening Dental Screen Date: 02/19/24 Did you have a dental visit in the last 12 months?: No Did you have a dental problem in the last 6 months where you did not have access to dental care?: No Was dental information given to patient?: No HPI Annual PE HPI Details Patient is a 28-year-old gentleman came in today for physical exam Patient just had a abdominal wall hernia repaired He still have Steri-Strips on, wound was examined it is healing well Patient have back brace on to protect the wound He has appointment coming up with surgeon next week GERD is stable with omeprazole I have sent refill He is complaining of pain right knee, I have ordered x-ray Further management after x-ray report, patient willing to see orthopedic. Patient also have sleep apnea He will return in 1 year for physical exam [facility] Medical History Seasonal allergies Environmental allergies Depression Anxiety Skin lesion of breast Morbid obesity Seborrhea capitis Sleep apnea in adult Chronic GERD Surgical History Abdominal wall hernia (02/13/24) History of surgical removal of ganglion cyst H/O tooth extraction Family History Father Klinefelter syndrome Depression History of mental disorder Mother Anxiety History of mental disorder Maternal Grandmother Arthritis Liver problem Cancer Maternal Grandfather Alcohol abuse Paternal Grandmother No problems noted. Paternal Grandfather No problems noted. Brother No problems noted. Sister No problems noted. Social History Household Members: Family Housing: House Are you a primary wound care rn to a significant other at home: No Do you presently have visiting nurse or other home services: No Comment: counts correct Patient Tobacco Use Status: Never used Tobacco e-Cigarette/Vaping Use: Never Used Substance Use Type: Marijuana service: No Current occupational status: unemployed Cognitive needs: No Hearing needs: No Vision needs: No Questionnaire PHQ-9 Over the last 2 weeks, how often have you been bothered by any of the following problems? 34280 - PHQ-9 Billing: Patient declined-do not bill Source: Developed by Drs. Milan Soria, Christy Lynn, Lawrence Cadena and colleagues, with an educational sagrario from [employer]. Thrive Questionnaire Date Thrive assessed: 02/14/24 AUDIT C Alcohol Use Questionnaire (AUDIT-C) 1. How often do you have a drink containing alcohol?: Never 3. How often do you have six or more drinks on one occasion?: Never Total Score: 0 Score Reviewed/Action Taken: Yes SARAH BETH-7 AMB Questionnaire SARAH BETH-7 Date SARAH BETH - 7 assessed: 08/08/22 Source: Developed by Drs. Milan Soria, Christy Lynn, Lawrence Cadena and colleagues, with an educational sagrario from [employer]. Review of Systems Const Denies chills, Denies fever(s) and Denies headache(s) Eyes Denies blurry vision ENT Denies headache(s), Denies nasal discharge, Denies nasal obstruction, Denies odynophagia and Denies sinus pain Card Denies chest pain at rest and Denies chest pain with activity Resp Denies cough and Denies hemoptysis GI Denies diarrhea, Denies odynophagia, Denies vomiting and Denies hematemesis Reports as per HPI Musc Denies abnormal gait Skin/Breast Reports as per HPI Neuro Denies Neuro-related abnormal movements, Denies Abnormal speech present, Denies abnormal gait, Denies headache(s) and Denies Sensory deficit (Neuro) Psych Denies mood swings and Denies paranoia Endo Reports as per HPI Pio/Lymph Reports as per HPI Aller/Immun Reports as per HPI Physical exam (Primary Care) Vital Signs: Last Vital Signs Pulse 92 02/19/24 15:27 BP 126/74 02/19/24 15:27 Pulse Ox 97 02/19/24 15:27 Oxygen Delivery Method Room Air 02/19/24 15:27 BMI result Body Mass Index 60.8 Tobacco/Smoking Status: Tobacco use Status Tobacco use date assessed 02/19/24 02/19/24 15:33 Patient Tobacco Use Status Never used Tobacco 02/19/24 15:33 e-Cigarette/Vaping Use Never Used 02/19/24 15:33 Thrive Assessment: Date of Thrive Assessment Date Thrive assessed 02/14/24 02/19/24 15:33 Const General: cooperative, comfortable and no acute distress Orientation/consciousness: patient oriented x3 HENMT Head: Yes normocephalic and Yes atraumatic Eyes General: appearance normal, both eyes and all related structures Pupils: Equal, round and reactive pupils present EOM: EOMs intact bilaterally Neck Neck: Yes supple Thyroid: Thyroid normal Lymphatic: no lymphadenopathy noted Resp Effort & Inspection: normal respiratory effort and able to speak in complete sentences Auscultation: clear to auscultation bilaterally Cardio Heart sounds: S1 normal heart sound present and S2 normal heart sound present GI Palpation (GI): Soft to palpation Auscultation: normal bowel sounds Abdomen image: 1. Surgical wound with Steri-Strips 2. Surgical wound with Steri-Strips Skin General skin exam: elasticity normal and turgor normal Neuro General: patient oriented x3 and gait normal Cranial nerves: Yes Equal, round and reactive pupils present Speech: No Abnormal speech present Sensory Exam: No Sensory deficit (Neuro) Extrem Other: Right knee tender laterally with palpation, range of motion intact, swelling was not appreciated due to body habitus General: Yes normal exam except as noted and No edema Assessment and Plan Assessment & Plan (1) Encounter for general adult medical examination with abnormal findings: Code(s): Z00.01 - Encounter for general adult medical examination with abnormal findings (2) Knee pain, right: Code(s): M25.561 - Pain in right knee Qualifiers: Chronicity: acute Qualified Code(s): M25.561 - Pain in right knee (3) Chronic GERD: Code(s): K21.9 - Gastro-esophageal reflux disease without esophagitis (4) Sleep apnea in adult: Comment: cpap used Code(s): G47.30 - Sleep apnea, unspecified (5) Morbid obesity: Code(s): E66.01 - Morbid (severe) obesity due to excess calories (6) Abdominal wall hernia: Onset Date: 02/13/24 Comment: 1. Incarcerated supraumbilical hernia w/mesh 2. umbilical hernia Dr. Melvin Ruelas Code(s): K43.9 - Ventral hernia without obstruction or gangrene Plan Patient is a 28-year-old gentleman came in today for physical exam Patient just had a abdominal wall hernia repaired He still have Steri-Strips on, wound was examined it is healing well Patient have back brace on to protect the wound He has appointment coming up with surgeon next week GERD is stable with omeprazole I have sent refill He is complaining of pain right knee, I have ordered x-ray Further management after x-ray report, patient willing to see orthopedic. Patient also have sleep apnea He will return in 1 year for physical exam Orders: Orders XR knee RT 2V Today M25.561 - Pain in right knee Medications: New omeprazole 20 mg PO DAILY 90 caps 3RF Coding Level of Care Code Est Pt Prev Care 18-39y(67375) Diagnoses Encounter for general adult medical examination with abnormal findings Z00.01 Acute pain of right knee M25.561 Chronicity: acute Chronic GERD K21.9 Sleep apnea in adult G47.30 Morbid obesity E66.01 Abdominal wall hernia K43.9
== END 2024-02-19 15:46 | disposition home or self-care (01) ==
PROVIDERS: PCP Internal Medicine; Visit Provider Internal Medicine
DX: Z00.01 Encounter for general adult medical examination with abnormal findings (principal); M25.561 Pain in right knee; E66.01 Morbid (severe) obesity due to excess calories; Z68.44 Body mass index [BMI] 60.0-69.9, adult; K21.9 Gastro-esophageal reflux disease without esophagitis; G47.30 Sleep apnea, unspecified; K43.9 Ventral hernia without obstruction or gangrene
CPT/HCPCS: 99213; 99395

== ENCOUNTER 2024-02-19 15:47 | Outpatient (REF) | payer OTHER, SELFPAY ==
--- NOTE | ~2024-02-19 | XR_ITS ---
EXAMINATION: XR KNEE, RIGHT CLINICAL INFORMATION: Pain in right knee COMPARISON: None available. TECHNIQUE: Four views of the right knee. FINDINGS: No fracture or joint effusion. Alignment is anatomic. Joint spaces are maintained. No abnormal soft tissue calcification. Incidental note is made of an area of lobulated sclerosis in the proximal medial metaphysis of the tibia at the appearance of a nonossifying fibroma XR/XR knee RT 2V IMPRESSION: 1. No significant abnormality. 2. 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
== END 2024-02-19 15:48 | disposition home or self-care (01) ==
LOC: HO.HMGCX 15:47
PROVIDERS: PCP Internal Medicine; Visit Provider Internal Medicine
DX: M25.561 Pain in right knee (principal)
CPT/HCPCS: 73560

== ENCOUNTER 2024-02-25 09:04 | Outpatient (AMB) | payer OTHER, SELFPAY ==
--- NOTE | 2024-02-25 09:15 | MHC.OFFVIS ---
Intake Visit Reasons: S/P ventral hernia w/mesh Intake Note: Patient here s/p 1. Supraumbilical hernia 2. Umbilical hernia w/mesh. Reports incisions healing well. Patient c/o: pain. Still taking rx pain meds. Steri strips still hanging on. Denies bleeding, itch, oozing. SX: 02-13-24. [employer] Machine Feeder Required: No Accompanied by: Mother Allergies No Known Allergies [No Known Allergies*] Allergy (Verified 02/25/24 09:16) Environmental Allergy (Unknown, Uncoded 02/25/24 09:16) Unknown HPI Comments Details: Patent presents with his mother. He is doing quite well. He has tolerating a diet. Having regular bowel habits. He is increasing his activity level. He is minimal incisional discomfort. He has been wearing his abdominal binder. [facility] Medical History Seasonal allergies Environmental allergies Depression Anxiety Skin lesion of breast Morbid obesity Seborrhea capitis Sleep apnea in adult Chronic GERD Surgical History Abdominal wall hernia (02/13/24) History of surgical removal of ganglion cyst H/O tooth extraction Family History Father Klinefelter syndrome Depression History of mental disorder Mother Anxiety History of mental disorder Maternal Grandmother Arthritis Liver problem Cancer Maternal Grandfather Alcohol abuse Paternal Grandmother No problems noted. Paternal Grandfather No problems noted. Brother No problems noted. Sister No problems noted. Social History Household Members: Family Housing: House Are you a primary college and career counselor to a significant other at home: No Do you presently have visiting nurse or other home services: No Comment: counts correct Patient Tobacco Use Status: Never used Tobacco e-Cigarette/Vaping Use: Never Used Substance Use Type: Marijuana service: No Current occupational status: unemployed Cognitive needs: No Hearing needs: No Vision needs: No Physical Exam GI Other: Abdomen is soft. Wounds clean dry and intact healing very well Assessment & Plan Assessment & Plan (1) Postop check: Code(s): Z09 - Encounter for follow-up examination after completed treatment for conditions other than malignant neoplasm Category: Surgical Plan Patient has been given very specific local instructions including avoiding strenuous activities, continue abdominal binder, and we will otherwise follow-up p.r.n.. All questions answered. Coding Level of Care Code Global (22208) Diagnoses Postop check Z09
== END 2024-02-25 09:27 | disposition home or self-care (01) ==
PROVIDERS: PCP Internal Medicine; Visit Provider Surgery
DX: Z09 Encounter for follow-up examination after completed treatment for conditions other than malignant neoplasm (principal)
CPT/HCPCS: 99212

== ENCOUNTER → 2024-02-25 09:04 | Outpatient (BNVA) | payer OTHER, SELFPAY | PROVIDERS: PCP Internal Medicine; Visit Provider Surgery | DX: Z09 Encounter for follow-up examination after completed treatment for conditions other than malignant neoplasm (principal); Z98.890 Other specified postprocedural states | CPT/HCPCS: 99212 ==

== ENCOUNTER 2025-08-25 14:51 | Outpatient (REF) | payer OTHER, SELFPAY ==
--- NOTE | ~2025-08-25 | XR_ITS ---
EXAMINATION: XR ANKLE 1-2 VIEWS LEFT HISTORY: M25.572 - Pain in left ankle and joints of left foot COMPARISON: There are no prior studies available for comparison. FINDINGS: Three views of the left ankle are submitted. Osseous mineralization is normal. There is no fracture or dislocation. The joint spaces are preserved. The soft tissues are unremarkable. XR/XR ankle LT 2V IMPRESSION: Unremarkable examination of the left ankle. Electronically signed by: Milan Ramos MD 08/25/2025 03:37 PM EST
[2025-08-25 16:03] LABS: MANUAL DIFF FLAG NO
[2025-08-25 16:12] LABS: Hematocrit 43.8 % (42.0-52.0); Hemoglobin 14.2 g/dl (14.0-18.0); Imm Gran Abs Auto 0.02 X10*3/uL (0.00-0.03); Imm Gran Pct Auto 0.3 % (0.0-0.4); Lymphocytes Absolute Auto 2.7 X10*3/uL (1.2-4.9); Mean Corpuscular HGB Conc 32.4 g/dl (31.0-36.0); Mean Corpuscular Hemoglobin 28.0 pg (27.0-33.0); Mean Corpuscular Volume 86.4 fL (80.0-98.0); NRBC Abs Auto 0.000 X10*3/uL (0.0-0.012); NRBC Pct Auto 0.0 /100WBC (0.0-0.2); Platelet Count 222 X10*3/uL (160-400); Red Blood Count 5.07 X10*6/uL (4.60-5.80); White Blood Count 7.4 X10*3/uL (4.8-10.8)
[2025-08-25 17:24] LABS: Alanine Aminotransferase 24 U/L (0-40); Albumin Level 4.1 g/dL (3.5-5.0); Alkaline Phosphatase 95 U/L (39-117); Anion Gap 11 (12-20); Aspartate Amino Transferase 27 U/L (5-37); Blood Urea Nitrogen 11 mg/dL (9-16); Calcium 9.2 mg/dL (8.4-10.2); Carbon Dioxide 25 mmol/L (22-29); Chloride 107 mmol/L (96-108); Estimated Glomerular Filt Rate > 60; Potassium 4.1 mmol/L (3.3-5.1); Sodium 139 mmol/L (135-145); Total Protein 7.7 g/dL (6.5-8.0)
== END 2025-08-25 14:52 | disposition home or self-care (01) ==
LOC: HO.HMGCX 14:51
PROVIDERS: PCP Internal Medicine; Visit Provider Internal Medicine
DX: Z00.01 Encounter for general adult medical examination with abnormal findings (principal); M25.572 Pain in left ankle and joints of left foot; G47.30 Sleep apnea, unspecified; K21.9 Gastro-esophageal reflux disease without esophagitis; K76.0 Fatty (change of) liver, not elsewhere classified; E66.01 Morbid (severe) obesity due to excess calories; F41.9 Anxiety disorder, unspecified; F32.A Depression, unspecified; G47.33 Obstructive sleep apnea (adult) (pediatric); Z68.43 Body mass index [BMI] 50.0-59.9, adult
CPT/HCPCS: 36415; 73600; 80053; 83721; 84443; 85025; 96127; 99212; 99395

== ENCOUNTER 2025-08-25 14:51 | Outpatient (AMB) | payer OTHER, SELFPAY ==
[2025-08-25 14:52] VITALS: BP 132/76; PULSE 83; O2SAT 98; BMI 58.4
--- NOTE | 2025-08-25 14:52 | A.OFFPC_ITS ---
Vital Signs 08/25/25 14:52 Height 5 ft 10 in Weight 407 lb BMI 58.4 BP 132/76 Blood Pressure Location Lt brachial Position Sitting Pulse 83 Pulse Source Pulse Oximeter Pulse Oximetry (%) 98 Intake Visit Reasons: Annual PE Managed Services Consultant Required: No Accompanied by: Self / Same As Patient Allergies No Known Allergies (No Known Allergies*) Allergy (Verified 08/25/25 14:53) Environmental Allergy (Unknown, Uncoded 02/25/24 09:16) Unknown Medication List - Last Reconciled 08/25/25 by Selene Thomas MD No Known Home Meds Tobacco use date assessed: 08/25/25 Dental Screening Dental Screen Date: 08/25/25 Did you have a dental visit in the last 12 months?: No Did you have a dental problem in the last 6 months where you did not have access to dental care?: No HPI HPI Comments History of Present Illness Details History of Present Illness The patient is a 29 year old male presenting with Physical exam apt and c/o left ankle pain. has h/o fatty liver Left Ankle Pain: - The patient reports that his left foot gives out if he stands for too long, describing the sensation as weakness in the ankle. - The primary symptom is a lot of pain, which continues even after sitting down. - He denies any associated swelling. - He is trying to exercise more, but thi s does not alleviate the pain. Gastroesophageal Reflux Disease: - The patient has a history of reflux an d has stopped taking omeprazole. - He still experiences reflux symptoms, but they are not severe enough to require medication. Anxiety and Depression: - The patient states that anxiety and de pression are still present. - He is not taking any medication for th antonia conditions and declines to start any. Obstructive Sleep Apnea: - The patient reports that he is no long er using his CPAP machine. Medical History: - Gastroesophageal reflux disease, previ ously managed with omeprazole. - Anxiety, untreated. - Depression, untreated. - Obstructive sleep apnea, non-adherent with CPAP therapy. Social History: - Exercise: Patient reports he is trying to exercise more. Health Maintenance - Influenza vaccine: Declined. - Tetanus vaccine: Due next year. - Screening labs: Agreed to baseline blo od tests to check for anemia, kidney function, and liver function. [facility] Medical History Seasonal allergies Environmental allergies Depression Anxiety Skin lesion of breast Morbid obesity Seborrhea capitis Sleep apnea in adult Chronic GERD Surgical History Abdominal wall hernia (02/13/24) History of surgical removal of ganglion cyst H/O tooth extraction Family History Father Klinefelter syndrome Depression History of mental disorder Mother Anxiety History of mental disorder Maternal Grandmother Arthritis Liver problem Cancer Maternal Grandfather Alcohol abuse Paternal Grandmother No problems noted. Paternal Grandfather No problems noted. Brother No problems noted. Sister No problems noted. Social History Household Members: Family Housing: House Are you a primary child care nurse to a significant other at home: No Do you presently have visiting nurse or other home services: No Comment: counts correct Patient Tobacco Use Status: Never used Tobacco e-Cigarette/Vaping Use: Never Used Substance Use Type: Marijuana service: No Current occupational status: unemployed Cognitive needs: No Hearing needs: No Vision needs: No Questionnaire PHQ-9 Over the last 2 weeks, how often have you been bothered by any of the following problems? 1. Little interest or pleasure in doing things: several days 2. Feeling down, depressed, or hopeless: several days 3. Trouble falling or staying asleep, or sleeping too much: several days 4. Feeling tired or having little energy: several days 5. Poor appetite or overeating: more than half the days 6. Feeling bad about yourself - or that you are a failure or have let yourself or your family down: several days 7. Trouble concentrating on things, such as reading the newspaper or watching television: several days 8. Moving or speaking so slowly that other people could have noticed. Or the opposite - being so fidgety or restless that you have been moving around a lot more than usual: not at all 9. Thoughts that you would be better off or of hurting yourself in some way: not at all Total score: 8 Depression Screening Interpretation: Negative Depression Screening Done: Yes 94433 - PHQ-9 Billing: Yes Source: Developed by Drs. Milan L. Yang, Lawrence Escamilla and colleagues, with an educational sagrario from [employer]. Thrive Questionnaire Date Thrive assessed: 08/25/25 I am a: Patient What is your living situation today?: I have a steady place to live Within the past 12 months, did the food you bought not last and you didn't have the money to get more?: Never true Within the past 12 months, did you worry whether your food would run out before you got money to buy more?: Never true Do you have trouble paying for medicines?: No Do you have trouble getting transportation to medical appointments?: No Do you have trouble paying your heating and electricity bill?: No Do you have trouble taking care of your child, family member or friend?: No Do you have trouble with day-to-day activities such as bathing, preparing meals, shopping, managing finances, etc.?: No Are you currently unemployed and looking for a job?: No Are you interested in more education?: No Please select the resources that you would like help with: None Currently or been in a relationship where the following occur: No concerns reported THRIVE Score: 0 AUDIT C Alcohol Use Questionnaire (AUDIT-C) 1. How often do you have a drink containing alcohol?: Never 3. How often do you have six or more drinks on one occasion?: Never Total Score: 0 Score Reviewed/Action Taken: Yes SARAH BETH-7 AMB Questionnaire SARAH BETH-7 Date SARAH BETH - 7 assessed: 08/25/25 Feeling nervous, anxious, or on edge: 1 = Several days Not being able to stop or control worryin = Several days Worrying too much about different things: 1 = Several days Trouble relaxin = Not at all Being so restless that it is hard to sit still: 0 = Not at all Becoming easily annoyed or irritable: 1 = Several days Feeling afraid as if something awful might happen: 1 = Several days Total SARAH BETH-7 score (0-4 normal; 5-9 mild; 10-14 moderate; 15-21 severe): 5 Source: Developed by Drs. Milan Soria, Lawrence Escamilla and colleagues, with an educational sagrario from [employer]. SARAH BETH-7 Assessment Billing SARAH BETH-7 Assessment Tool: SARAH BETH-7 Assessment 06992 Review of Systems Narrative Review of Systems - General: No fever no chills - Neurological: No headaches no dizziness - Ear nose throat: No sore throat no hearing difficulty no ear pain - Cardiovascular: No syncope, no chest pain, no palpitations - Gastrointestinal: No nausea vomiting or diarrhea - Endocrine: No polyuria polydipsia no heat intolerance - Genitourinary: No dysuria - Skin: No new complaints Physical exam (Primary Care) Vital Signs: Last Vital Signs Pulse 83 08/25/25 14:52 BP 132/76 08/25/25 14:52 Pulse Ox 98 08/25/25 14:52 BMI result Body Mass Index 58.4 Tobacco/Smoking Status: Tobacco use Status Tobacco use date assessed 08/25/25 08/25/25 14:54 Patient Tobacco Use Status Never used Tobacco 08/25/25 14:54 e-Cigarette/Vaping Use Never Used 08/25/25 14:54 Depression Screening Interpretation: Negative Thrive Assessment: Date of Thrive Assessment Date Thrive assessed 08/25/25 08/25/25 14:54 Currently or been in a relationship where the following occur: No concerns reported Narrative Diagnostic results Physical Exam General: Cooperative, healthy appearing, comfortable, no acute distress Orientation: Patient oriented x3 Head: Normal to inspection Ears: Within normal limit visually Nose: Normal external nose present Face and sinus: Normal facial exam Eyes: Appearance normal, extraocular movement intact pupils reactive Neck: Normal visual inspection and supple Respiratory: Normal respiratory effort and able to speak in complete sentences. Clear to auscultation, no stridor Cardiovascular: S1 and S2 RRR GI: Normal to inspection. no pain Skin: Turgor normal, no acute findings Neuro: Patient oriented x3, motor sensory intact, balance intact, tandem pass Extremities: Normal to inspection, except for left ankle pain medially around maleolus noted.. . Coding Level of Care Code Est Pt Level 3 (24413) Est Pt Prev Care 18-39y(66599) Diagnoses Encounter for general adult medical examination with abnormal findings Z00.01 Chronic pain of left ankle M25.572; G89.29 Chronicity: chronic Sleep apnea in adult G47.30 Chronic GERD K21.9 Hepatic steatosis K76.0 Morbid obesity E66.01 Additional Codes SARAH BETH-7 Assessment Billing - SARAH BETH-7 Assessment Tool: SARAH BETH-7 Assessment 61113 ([id number]) PHQ-9 - 29511 - PHQ-9 Billing: Yes ([id number]) Assessment & Plan Assessment & Plan (1) Encounter for general adult medical examination with abnormal findings: Code(s): Z00.01 - Encounter for general adult medical examination with abnormal findings Category: Medical (2) Pain, joint, ankle, left: Code(s): M25.572 - Pain in left ankle and joints of left foot Category: Medical Qualifiers: Chronicity: chronic Qualified Code(s): M25.572 - Pain in left ankle and joints of left foot; G89.29 - Other chronic pain (3) Sleep apnea in adult: Comment: cpap used Code(s): G47.30 - Sleep apnea, unspecified Category: Medical (4) Chronic GERD: Code(s): K21.9 - Gastro-esophageal reflux disease without esophagitis Category: Medical (5) Hepatic steatosis: Code(s): K76.0 - Fatty (change of) liver, not elsewhere classified Category: Medical (6) Morbid obesity: Code(s): E66.01 - Morbid (severe) obesity due to excess calories Category: Medical Plan Patient Instructions - Go next door for your blood tests and ankle x-ray after your visit. - Please contact the office if you change your mind and would like to start physical therapy for your ankle. - You are due for a tetanus vaccine next year, and we will plan to give it then. - Please book your next appointment before you leave. Orders: Orders XR ankle LT 2V Today M25.572 - Pain in left ankle and joints of left foot Complete Blood Count Auto Diff Today E66.01 - Morbid (severe) obesity due to excess calories, G47.30 - Sleep apnea, unspecified, K21.9 - Gastro-esophageal reflux disease without esophagitis, K76.0 - Fatty (change of) liver, not elsewhere classified, M25.572 - Pain in left ankle and joints of left foot, Z00.01 - Encounter for general adult medical examination with abnormal findings Comprehensive Met. Panel Today E66.01 - Morbid (severe) obesity due to excess calories, G47.30 - Sleep apnea, unspecified, K21.9 - Gastro-esophageal reflux disease without esophagitis, K76.0 - Fatty (change of) liver, not elsewhere classified, M25.572 - Pain in left ankle and joints of left foot, Z00.01 - Encounter for general adult medical examination with abnormal findings LDL Cholesterol Direct Today E66.01 - Morbid (severe) obesity due to excess calories, G47.30 - Sleep apnea, unspecified, K21.9 - Gastro-esophageal reflux disease without esophagitis, K76.0 - Fatty (change of) liver, not elsewhere classified, M25.572 - Pain in left ankle and joints of left foot, Z00.01 - Encounter for general adult medical examination with abnormal findings TSH reflex Free T4 Today E66.01 - Morbid (severe) obesity due to excess calories, G47.30 - Sleep apnea, unspecified, K21.9 - Gastro-esophageal reflux disease without esophagitis, K76.0 - Fatty (change of) liver, not elsewhere classified, M25.572 - Pain in left ankle and joints of left foot, Z00.01 - Encounter for general adult medical examination with abnormal findings
== END 2025-08-25 15:13 | disposition home or self-care (01) ==
LOC: HO.HMCC 14:52
PROVIDERS: PCP Internal Medicine; Visit Provider Internal Medicine
DX: Z00.01 Encounter for general adult medical examination with abnormal findings (principal); M25.572 Pain in left ankle and joints of left foot; E66.01 Morbid (severe) obesity due to excess calories; Z68.43 Body mass index [BMI] 50.0-59.9, adult; G89.29 Other chronic pain; G47.30 Sleep apnea, unspecified; K21.9 Gastro-esophageal reflux disease without esophagitis; K76.0 Fatty (change of) liver, not elsewhere classified

== ENCOUNTER → 2025-08-25 15:16 | Outpatient (BNV) | payer OTHER, SELFPAY | PROVIDERS: PCP Internal Medicine; Visit Provider Radiology Diagnostic Radiology | DX: M25.572 Pain in left ankle and joints of left foot (principal) | CPT/HCPCS: 73600 ==